=== PATIENT | female | born 1970 | race Caucasian/White ===

== ENCOUNTER 2017-08-27 06:51 | Day surgery (SDC) | payer OTHER ==
[~2017-08-27] VITALS: Ht 157.5 cm; Wt 69.7 kg
[2017-08-27] VITALS (25 sets, daily range): BP systolic 93–110; BP diastolic 50–62; PULSE 42–57; RESP 12–21; Ht 157.5 cm; Wt 69.7 kg
--- NOTE | 2017-08-27 07:54 | RADRPT ---
PROCEDURE: XR Chest. CLINICAL INDICATION: Chest pain, preop TECHNIQUE: Single frontal view of the chest was obtained COMPARISON: None FINDINGS: The heart and mediastinum are within normal limits. There is an 8 mm calcified nodule in the superolateral right lower lobe that likely represents a gra nuloma. Correlation with previous films would be useful. The lungs are otherwise clear. There is no pleural effusion or pneumothorax. The bones and soft tissue show no acute change. IMPRESSION: 1. 8 mm calcified nodule in the superolateral right lower lobe that likely represents a granuloma. Correlation with previous films would be useful. 2. Otherwise, no significant abnormalities are identified. RPTAT:AAJJ Physician Anuj Date Time Electronically viewed and signed by Rajesh Barber Physician on 08/27/2017 07:54 /
[2017-08-27] MEDS ORDERED: LEVO137T3 PO (08:14)
[2017-08-27] MEDS ORDERED: IODIXANOL LOCM 100 ML BTL ONE (08:55)
[2017-08-27] MEDS ORDERED: NITROGLYCERIN (IC) 100 MCG/ML INJ ONE (08:55)
[2017-08-27] MEDS ORDERED: HEPARIN 1000 UNITS/NS (A-LINE) 1,000 ML ONE (08:55)
[2017-08-27] MEDS ORDERED: LIDOCAINE 1% (MDV) 20 ML INJ ONE (08:55)
[2017-08-27] MEDS ORDERED: VERAPAMIL 5 MG INJ ONE (08:55)
[2017-08-27] MEDS ORDERED: FENTAnyl 50 MCG/ML VIAL ONE (08:55)
[2017-08-27] MEDS ORDERED: MIDAZOLAM 1 MG/ML 2 ML INJ ONE (08:55)
[2017-08-27] MEDS ORDERED: HEPARIN 1000 UNITS/ML 10 ML INJ ONE (08:55)
[2017-08-27] MEDS ORDERED: DIPHENHYDRAMINE 50 MG CAP PO ONE (09:00)
[2017-08-27] MEDS ORDERED: FAMOTIDINE 20 MG TAB PO ONE (09:00)
[2017-08-27] MEDS ORDERED: SOD CHLORIDE 0.45% 1,000 ML IV ONE (09:00)
[2017-08-27] MEDS ORDERED: DIAZEPAM 5 MG TAB PO ONE (09:00)
--- NOTE | 2017-08-27 10:17 | SIPON ---
Date/Time of Note Date/Time of Note DATE: 08/27/17 TIME: 10:16 Operative Report Preoperative Diagnosis 1.Chest pain 2.abnl MPI Postoperative Diagnosis 1.non-obstructive cad Operation/Procedure Performed 1.[facility] Surgeon see signature line physician assistant primary care Ronen Anesthesia: moderate sedation Estimated blood loss: minimal Transfusion Required none Specimen NA Grafts/Implants none Complications none SHANNA VALENTIN Aug 27, 2017 10:17
--- NOTE | 2017-08-27 10:17 | SIPON ---
Date/Time of Note Date/Time of Note DATE: 08/27/17 TIME: 10:16 Operative Report Preoperative Diagnosis 1.Chest pain 2.abnl MPI Postoperative Diagnosis 1.non-obstructive cad Operation/Procedure Performed 1.[facility] Surgeon see signature line virtual assistant Ronen Anesthesia: moderate sedation Estimated blood loss: minimal Transfusion Required none Specimen NA Grafts/Implants none Complications none SHANNA VALENTIN Aug 27, 2017 10:17
--- NOTE | 2017-08-27 10:17 | SIPON ---
Date/Time of Note Date/Time of Note DATE: 08/27/17 TIME: 10:16 Operative Report Preoperative Diagnosis 1.Chest pain 2.abnl MPI Postoperative Diagnosis 1.non-obstructive cad Operation/Procedure Performed 1.[facility] Surgeon see signature line life science research assistant Ronen Anesthesia: moderate sedation Estimated blood loss: minimal Transfusion Required none Specimen NA Grafts/Implants none Complications none SHANNA VALENTIN Aug 27, 2017 10:17
[2017-08-27] MEDS ORDERED: SOD CHLORIDE 0.9% 1,000 ML IV SCH (10:20)
[2017-08-27] MEDS ORDERED: ACETAMINOPHEN 325 MG TAB PO PRN (10:30)
[2017-08-27] MEDS ORDERED: ONDANSETRON 4 MG INJ IV PRN (10:30)
[2017-08-27] MEDS ORDERED: AL HYDROX/MG HYDROX/SIMETH 30 ML CUP PO PRN (10:30)
[2017-08-27] MEDS ORDERED: morphine 2 MG INJ IV PRN (10:30)
--- NOTE | 2017-08-27 10:45 | CARRPT ---
DATE OF PROCEDURE: 08/27/2017 TYPE OF PROCEDURE: 1. Left heart catheterization. 2. Coronary angiography. 3. Measurement of left ventricular end diastolic pressure. ATTENDING PHYSICIAN: Shanna Fitzgerald MD. INDICATION: Chest pain with positive stress test findings for anterior and inferior ischemia. TYPE OF ANESTHESIA: Conscious and local. BRIEF HISTORY: Ms. Torres is a 47-year-old female with history of hypothyroidism who initially p resented with complaints of substernal chest pain. The patient subsequently underwent a cardiac str ess test revealing positive anterior and inferior ischemia. Given these findings, the patient was r eferred for and presents today in order to undergo left heart catheterization to assess for the poss ibility of significant obstructive coronary artery disease lending to her chest pain and subsequent positive findings. DESCRIPTION OF PROCEDURE: After informed consent was obtained, patient was taken to the [facility] cardiac catheterization lab where her right radial area was prepped and draped in the usual sterile fashion. Lidocaine 2% was infiltrated into right radial area in order to achieve adequate local anesthesia. Using modified Seldinger technique, the radial artery was cannulated and a 6-Mauritanian arterial sheath was placed. A 6-Mauritanian JL3.5 catheter was used to cannulate the left ma in coronary ostium. With contrast injection, multiple views of the left coronary arterial system we re obtained. JL3.5 was removed over a guidewire and a JR4 was used to cannulate the right coronary arterial ostium. With contrast injection, multiple views of the right coronary arterial system were obtained. JL4 was removed over a guidewire and additionally after being used across the aortic elle ve and pulled back across the aortic valve to assess for significant gradient, which there was not a nd removed. Subsequently, at this time this completed the procedure. The patient's catheter was re moved. The patient's sheath was removed. TR band was applied. This completed the procedure. Ther e were no noted complications. FINDINGS: Coronary angiography: Left main 3 mm, no significant focal stenoses. Circumflex proxima lly is a 3-mm vessel and has mild luminal irregularities of 10% to 20% in the mid portion, distal br anching obtuse marginal 2 mm vessel with no significant focal stenoses. There exists a true ramus b ranch 3 mm vessel with no significant focal stenoses, splits into 2 bottom branches, each 2 mm with no significant focal stenoses. LAD proximally is a 3-mm vessel and has mild luminal irregularities of 10% to 20% in the mid portion with a possible diagonal to the very distal portion where there is a sub 2 mm diagonal x2. The right coronary artery proximally is a 3.5 mm vessel and is free of any significant focal stenoses, dominant vessel, gives off a 3 mm PDA and a 2.5 mm posterolateral branch , each with no significant focal stenoses. Measurement of left ventricular end diastolic pressure of 13 to 15. No significant aortic stenosis by gradient. TOTAL FLUOROSCOPY TIME: 2.1 minutes. TOTAL CONTRAST: 47 mL. IMPRESSION: 1. Essentially normal coronary arteries with very mild nonobstructive coronary artery disease. 2. Normal left heart filling pressures. 3. No significant aortic stenosis by gradient. RECOMMENDATIONS: In light of procedure findings would: 1. Maximize medical management. 2. Aggressive risk factor reduction. 3. The patient to be readmitted to the same day surgery center for post-cath observation and contin ued management of symptoms with probable discharge later this afternoon. Dictated By: SHANNA HERNANDEZ/GIOVANNY Conf#: [id number] DID#: [id number]
--- NOTE | 2017-08-27 14:12 | RADRPT ---
Vent Rate: 50 bpm RR Interval: 0 msec VT Interval: 168 msec QRS Duration: 104 msec QT Interval: 470 msec QTC Interval: 428 msec P-R-T Reynolds: 43 - 18 - 11 degrees Sinus bradycardia T wave abnormality, consider anterior ischemia Abnormal ECG Electronically Signed By: Jace Contreras [id number]
--- NOTE | 2017-08-27 14:12 | RADRPT ---
Vent Rate: 50 bpm RR Interval: 0 msec SC Interval: 168 msec QRS Duration: 104 msec QT Interval: 470 msec QTC Interval: 428 msec P-R-T Faulkner: 43 - 18 - 11 degrees Sinus bradycardia T wave abnormality, consider anterior ischemia Abnormal ECG Electronically Signed By: Jace Contreras [id number]
--- NOTE | 2017-08-27 14:12 | RADRPT ---
Vent Rate: 50 bpm RR Interval: 0 msec UT Interval: 168 msec QRS Duration: 104 msec QT Interval: 470 msec QTC Interval: 428 msec P-R-T Wortham: 43 - 18 - 11 degrees Sinus bradycardia T wave abnormality, consider anterior ischemia Abnormal ECG Electronically Signed By: Jace Contreras [id number]
== END 2017-08-27 14:26 | disposition home or self-care (01) ==
LOC: SDS 06:51
PROVIDERS: ATTEND Internal Medicine
DX: R07.9 Chest pain, unspecified (principal); I25.10 Atherosclerotic heart disease of native coronary artery without angina pectoris
CPT/HCPCS: 71010; 80048; 80061; 85025; 85610; 85730; 93005; 93458; C1887; J1644; J2250; J2270; J3010; Q9967; Z7610

== ENCOUNTER 2017-09-21 09:42 | Day surgery (SDC) | payer OTHER ==
[2017-09-20 15:22] VITALS: BMI 23.6
[2017-09-21] VITALS (16 sets, daily range): BP systolic 114–147; BP diastolic 53–72; PULSE 48–90; RESP 15–31; Ht 160 cm; Wt 70.8 kg
[~2017-09-21] VITALS: Ht 160 cm; Wt 70.8 kg
[~2017-09-21 09:42] MED LIST: CEFAZOLIN 1 GM INJ ONE; LEVO137T3 PO
--- NOTE | 2017-09-21 12:26 | HPN ---
Date/Time of Note Date/Time of Note DATE: 09/21/17 TIME: 12:26 Interval H&P Admission Note Pt. seen H&P reviewed: No system changes HAM CARTAGENA MD Sep 21, 2017 12:26
[2017-09-21] MEDS ORDERED: PROPOFOL 80 ML ONE (13:38)
[2017-09-21] MEDS ORDERED: ONDANSETRON 4 MG INJ ONE (13:39)
[2017-09-21] MEDS ORDERED: SUCCINYLCHOLINE CHLORIDE 100 MG/5 ML SYG IV ONE (13:39)
[2017-09-21] MEDS ORDERED: LIDOCAINE 2% (SDV) 5 ML INJ ONE (13:39)
[2017-09-21] MEDS ORDERED: DEXAMETHASONE 4 MG/ML 1 ML INJ ONE (13:39)
[2017-09-21] MEDS ORDERED: MEPERIDINE 25 MG INJ ONE (14:41)
--- NOTE | 2017-09-21 14:55 | OPR ---
Date/Time of Note Date/Time of Note DATE: 09/21/17 TIME: 14:46 Operative Report Procedure Date: Sep 21, 2017 Preoperative Diagnosis Left thyroid nodule Postoperative Diagnosis Same Operation/Procedure Performed Left thyroid lobectomy Surgeon Ham Bolden Scientific Advisor Park Lee Anesthesia Type: general Estimated Blood Loss: 0 - 10 ml's Transfusion none Specimen Left thyroid nodule Grafts/Implants none Complications none Disposition: PACU Indications Left thyroid nodule, undetermined significance. Procedure Description Description of procedure: The patient was identified in the holding area. We had a discussion to confirm understanding of indications, risks, benefits, alternatives and postoperative care associated with the operation. Informed consent was signed. The patient was taken the operating room and placed supine on the operating table. General endotracheal anesthesia was achieved with a recurrent laryngeal nerve monitor capable endotracheal tube and recurrent laryngeal nerve monitoring was performed throughout the duration of the case. A shoulder roll was placed. The neck was prepped and draped in normal sterile fashion. A 15 blade was used to make a horizontal incision in a preexisting cervical crease. Subplatysmal flaps were elevated circumferentially. The midline raphe between the strap muscles was identified and vertically divided using monopolar cautery. The left sided strap muscles were elevated off the thyroid lobe. Dissection was fairly easy as there were no adhesions or signs of invasion.The superior pole of the thyroid gland was identified and bluntly dissected free to isolate the superior laryngeal nerve and the super pole vascular pedicle. The nerve was kept intact as the vessels were individually ligated and transected with the Liga-sure small jaw. In addition were used to assure continued hemostasis. More inferiorly, the middle thyroid vein was taken after careful ligation and transection and dissection in the tracheoesophageal groove was used to identify the recurrent laryngeal nerve. It was followed superiorly to the cricothyroid joint and in this area the the superior parathyroid gland was identified. The parathyroid was carefully dissected laterally saving the pedicle after which overlying thyroid tissue was from its fibrous attachments to the surrounding soft tissues with the bipolar forceps. More inferior dissection was used to free the entirety of the recurrent laryngeal nerve. The inferior parathyroid and surrounding fat pad was at this point identified and swept laterally, again sparing the pedicle. Careful inspection and palpation of the level 6 song basin at this point revealed no adenopathy. The thyroidectomy commenced in a lateral to medial fashion, dissecting the thyroid gland off of the recurrent nerve towards the trachea after which it was transected past the isthmus and sent for evaluation by pathology. 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 At this point, the contralateral thyroidectomy was performed in an exact similar sequence and fashion. Superior pole vascular pedicle, parathyroid glands, and the recurrent laryngeal nerve were all identified and addressed similar to the contralateral side. There was no mass or lymphadenopathy visible or palpable on thorough inspection of the central compartment. The wound was irrigated with copious amounts of saline. Valsalva was performed. There was no bleeding or oozing. A 3 -0 Vicryl was used to reapproximate the strap muscles in midline after which the same suture was used to reapproximate the platysma in interrupted buried fashion. Running 4-0 Monocryl was used to reapproximate the skin. The patient tolerated the procedure well and was extubated, taken to PACU in stable condition. Complications: None. HAM BOLDEN MD Sep 21, 2017 14:55
[2017-09-21] MEDS ORDERED: MEPERIDINE 25 MG INJ IV PRN (15:00)
[2017-09-21] MEDS ORDERED: LABETALOL HCL 20MG INJ IV PRN (15:00)
[2017-09-21] MEDS ORDERED: KETOROLAC 30 MG INJ IV PRN (15:00)
[2017-09-21] MEDS ORDERED: HYDROmorphONE (0.2 MG/ML) 10ML SYG IV PRN ×3 (15:00)
[2017-09-21] MEDS ORDERED: ONDANSETRON 4 MG INJ IV PRN (15:00)
[2017-09-21] MEDS ORDERED: OXYCODONE/ACETAMINOPHEN (5/325) TAB PO PRN ×3 (15:00)
[2017-09-21] MEDS ORDERED: hydrALAzine 20 MG INJ IV PRN (15:00)
[2017-09-21] MEDS ORDERED: DIPHENHYDRAMINE 50 MG INJ IV PRN (15:00)
[2017-09-21] MEDS ORDERED: METOCLOPRAMIDE 10 MG INJ IV PRN (15:00)
[2017-09-21] MEDS ORDERED: EPHEDrine SULFATE 50 MG/5 ML SYG IV PRN (15:00)
[2017-09-21] MEDS ORDERED: MIDAZOLAM 1 MG/ML 2 ML INJ IV PRN (15:00)
[2017-09-21] MEDS ORDERED: FENTAnyl 50 MCG/ML VIAL IV PRN ×3 (15:00)
== END 2017-09-21 17:15 | disposition home or self-care (01) ==
LOC: SDS 09:42
PROVIDERS: ATTEND Otolaryngology
DX: D34 Benign neoplasm of thyroid gland (principal); E06.3 Autoimmune thyroiditis; E03.9 Hypothyroidism, unspecified
CPT/HCPCS: 60220; 88307; 88331; J0690; J1100; J2175; J2405; J3010; Z7512; Z7610